=== PATIENT | female | born 1975 | race Caucasian/White ===

== ENCOUNTER 2018-04-26 12:51 | Outpatient (CLI) | payer BC ==
--- NOTE | 2018-04-26 15:23 | CT ---
NONCONTRAST ENHANCED CT IMAGES ABDOMEN AND PELVIS: History: Unspecific abdominal pain. FINDINGS: The lung bases are unremarkable. No evidence of free intraperitoneal air seen. A small area of osseous hyperdensity seen in the anterior aspect of the right femoral head. This may represent a bone island. A second lesion also seen in the left femoral head. Additional hyperdense fo saul lesions also seen in the right L4 vertebra seen on image 190 of 375. These small focal areas like ly represent bone islands, however, I cannot exclude the possibility of three separate tiny osteoblas tic osseous lesions. The liver and spleen are unremarkable. The gallbladder has been surgically removed. The pancreas is u nremarkable. Adrenal glands unremarkable. There is a 4.4 mm nonobstructing calculus in the midpole of the left kidney. The right and left collecting systems are decompressed. The uterus are not significantly dilated, how ever, bilaterally in the region of the distal ureters there may be tiny 1-2 mm distal ureteral calcul i. It is difficult to determine whether these areas of calcification are within the distal ureters or just outside of them. They may represent small pelvic phleboliths versus distal ureteral calculi. It may be worthwhile to consider repeat CT of the abdomen and pelvis with delayed post contrast enhance d images (CT urography) to confirm position of these calcification whether they are within or distal to the ureters. In addition, along the posterior aspect of the urinary bladder, several small calculi also seen. These may represent multiple left calculi which have passed into the urinary bladder or i n the distal aspect of the left ureter. An area of hypodensity seen in the medial aspect of the left hepatic lobe diameter measuring 13.5 mm. This may represent a hepatic cyst. Confirmation with sonogra phy may be of use. IMPRESSION: 1. Possible inter bladder calculi and distal ureteral calculi. Correlate with CT urography and clinic al correlation. POS: SALLIE
== END 2018-04-26 12:52 | disposition home or self-care (01) ==
LOC: RAD-BREN 12:51
DX: R10.9 Unspecified abdominal pain (principal)
CPT/HCPCS: 74176